=== PATIENT | male | born 1955 | race Caucasian/White ===

== ENCOUNTER 2017-03-26 09:15 | Emergency (ER) | payer OTHER ==
--- NOTE | 2017-03-28 14:40 | ER ---
DATE SEEN: 03/26/2017 HISTORY OF PRESENT ILLNESS: This 61-year-old chronic smoker, works at one of the [employer] [place] [facility], has had 5 days of coughing. He feels weak and tired with decreased strength in his legs and has had a fever early on, has had 3 days of headaches. The patient denies neck stiffness. ALLERGIES: Negative. Serious illnesses negative. HOSPITALIZATIONS: Negative. MEDICATIONS: Negative. REVIEW OF SYSTEMS: As noted above. PHYSICAL EXAMINATION: VITAL SIGNS: Blood pressure 100/69, heart rate 79, respirations 15, oxygen saturations 100%, and temperature is 36.8 degrees. HEENT: PERRLA intact. Patient in general has a leathered face with moderate st. george's feet and atrophy of the face. Multiple teeth are missing. Pharynx without erythema. NECK: Minimal cervical adenopathy. No bruits in neck. No thyromegaly. LUNGS: Clear without rales and without rhonchi. HEART: S1, S2. No murmur. ABDOMEN: Soft. No guarding. No discomfort. EXTREMITIES: Without edema. NEURO: Not performed. ASSESSMENT: Influenza. We have discussed the data from CDC and also [employer] [place] regarding flu and plans to not treat with oseltamivir as he is 5 days into it and perhaps efficacy is less. There are no neonates or newborns or children in his household, nor older people in the household who would get exposed to it. We also discussed performing tests and he said he was more inclined to save the money since he has most likely 60% chance of having influenza on the basis of CDC's note that the patient has been in bed for more than 3 days with muscle aches, and has a very high probability of influenza. Treat with adequate liquids. He is a smoker, so probably the most important thing is to address that. We did address the economic and social impact of his smoking. Plan Nicorette lozenges as directed, and NicoDerm patches as directed. Follow up with his doctor in a week if not improved or worse, earlier. He has been advised that he could have pneumonia on the heels of this. If he gets markedly worse, he will need to be seen again. DIAGNOSES: 1. Chronic obstructive lung disease. He is a smoker. 2. 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 3. Influenza. 4. Asthenia (decreased muscle mass). /[id number] SVEN/BOBBI
== END 2017-03-26 11:23 | disposition home or self-care (01) ==
LOC: FB.ED 09:15
DX: J11.1 Influenza due to unidentified influenza virus with other respiratory manifestations (principal); M62.81 Muscle weakness (generalized); F17.200 Nicotine dependence, unspecified, uncomplicated
CPT/HCPCS: 87081; 87430; 93005; 99283

== ENCOUNTER 2023-06-18 09:16 | Emergency (ER) | payer OTHER, MEDICAID | END 2023-06-18 11:26 | disposition home or self-care (01) | LOC: FB.ED 09:16 | DX: S16.1XXA Strain of muscle, fascia and tendon at neck level, initial encounter (principal); S39.012A Strain of muscle, fascia and tendon of lower back, initial encounter; F17.210 Nicotine dependence, cigarettes, uncomplicated; Z86.19 Personal history of other infectious and parasitic diseases; V40.6XXA Car passenger injured in collision with pedestrian or animal in traffic accident, initial encounter; Y93.89 Activity, other specified | CPT/HCPCS: 72050; 72114; 72125; 99283; 99284 ==